=== PATIENT | female | born 1940 | race Caucasian/White ===

== ENCOUNTER 2022-12-24 18:25 | Inpatient (IN) | payer MEDICARE, BC ==
[2022-12-24] MEDS ORDERED: Sodium Chloride 0.9% 10 ML Syringe FLUSH PRN (18:34)
[2022-12-24 18:59] LABS: BASOPHILS ABSOLUTE AUTO 0.05 K/mm3 (0.01-0.08); BASOPHILS PERCENT AUTO 0.8 % (0.1-1.2); EOSINOPHILS ABSOLUTE AUTO 0.21 K/mm3 (0.04-0.36); EOSINOPHILS PERCENT AUTO 3.5 (0.7-5.8); HEMATOCRIT 40.3 % (34.1-44.9); HEMOGLOBIN 13.7 gm/dl (11.2-15.7); IMMATURE GRAN ABSOLUTE AUTO 0.01 K/mm3 (0.00-0.10); IMMATURE GRAN PERCENT AUTO 0.2 % (<=1.0); LYMPHOCYTES ABSOLUTE AUTO 2.42 K/mm3 (1.18-3.74); LYMPHOCYTES PERCENT AUTO 40.5 % (19.3-51.7); MEAN CORPUSCULAR VOLUME 97.1 fl (79.4-94.8); MEAN PLATELET VOLUME 10.3 fl (9.4-12.3); MONOCYTES ABSOLUTE AUTO 1.01 K/mm3 (0.24-0.36); MONOCYTES PERCENT AUTO 16.9 % (4.7-12.5); NEUTROPHILS ABSOLUTE AUTO 2.28 K/mm3 (1.56-6.13); NEUTROPHILS PERCENT AUTO 38.1 % (34.0-71.1); PLATELET COUNT,PLT 108 K/mm3 (182-369); RED BLOOD CELL COUNT 4.15 M/mm3 (3.98-5.22); WHITE BLOOD CELL COUNT,WBC 5.98 K/mm3 (3.98-10.04)
[2022-12-24 19:18] LABS: INR 1.18; PROTHROMBIN TIME 12.5 SECONDS (9.7-12.0)
[2022-12-24 19:19] LABS: PTT,PARTIAL THROMBOPLSTIN TIME 29.5 SECONDS (21.7-31.4)
[2022-12-24 19:30] LABS: A/G RATIO 0.7 (1-2); ALBUMIN 2.2 g/dl (3.4-5.0); ANION GAP 8.6 (5-15); BILIRUBIN TOTAL 0.9 mg/dL (0.2-1.0); BUN/CREATININE RATIO 11.7 (14-18); CALCIUM 8.3 mg/dL (8.5-10.1); CREATININE 1.2 mg/dL (0.55-1.02); EST CRCL DRUG DOSING (CG) 30.14 mL/min; MAGNESIUM 1.6 mg/dL (1.8-2.4); POTASSIUM,K 3.6 mEq/L (3.5-5.1); PROTEIN TOTAL,TP 5.5 g/dl (6.4-8.2)
[2022-12-24] MEDS ORDERED: methylPREDNISolone Sodium Succinate 125 MG/2 ML SDV IVPUSH ONE (20:17)
[2022-12-24] MEDS ORDERED: Acetaminophen 325 MG Tab PO ONE (20:23)
[2022-12-24] MEDS: Levofloxacin/Dextrose 5%-Water 750 MG in Premix Bag 1 BAG IV SCH (21:20)
[2022-12-24] MEDS: Albuterol/Ipratropium 3.0-0.5 MG/3 ML Neb Soln NEB SCH (21:32)
[2022-12-24] MEDS: Budesonide 0.5 MG/2 ML Neb Susp NEB SCH (21:32)
[2022-12-25] MEDS: Albuterol/Ipratropium 3.0-0.5 MG/3 ML Neb Soln NEB SCH ×6 (01:49→20:53)
[2022-12-25] MEDS: Budesonide 0.5 MG/2 ML Neb Susp NEB SCH ×2 (05:27→20:54)
[2022-12-25] MEDS: Lidocaine 4% 1 each Patch TOP SCH ×2 (07:51→10:20)
[2022-12-25] MEDS ORDERED: Pantoprazole 40 MG Tab.CR PO ONE (08:09)
[2022-12-25] MEDS: Acetaminophen 325 MG Tab PO PRN ×3 (08:13→23:12)
[2022-12-25] MEDS ORDERED: Lidocaine 4% 1 each Patch TOP SCH (09:00)
[2022-12-25 12:51] LABS: BASE EXCESS ARTERIAL -3.6 (-2-2.0); BICARBONATE,ARTERIAL 19.8 meq/L (22.0-26.0); O2 SATURATION ARTERIAL 93.1 % (96.0-97.0); PCO2 ARTERIAL 32.4 mmHg (35.0-45.0)
[2022-12-25 13:28] LABS: EOSINOPHILS PERCENT AUTO 0 (0.7-5.8); HEMATOCRIT 39.8 % (34.1-44.9); HEMOGLOBIN 13.4 gm/dl (11.2-15.7); LYMPHOCYTES ABSOLUTE AUTO 0.68 K/mm3 (1.18-3.74); LYMPHOCYTES PERCENT AUTO 16.1 % (19.3-51.7); MEAN CORPUSCULAR HEMOGLOBIN 32.8 pg (25.6-32.2); MEAN CORPUSCULAR HGB CONC 33.7 g/dl (32.2-35.5); MEAN CORPUSCULAR VOLUME 97.5 fl (79.4-94.8); MEAN PLATELET VOLUME 10.5 fl (9.4-12.3); MONOCYTES ABSOLUTE AUTO 0.37 K/mm3 (0.24-0.36); MONOCYTES PERCENT AUTO 8.7 % (4.7-12.5); NEUTROPHILS ABSOLUTE AUTO 3.18 K/mm3 (1.56-6.13); NEUTROPHILS PERCENT AUTO 75.2 % (34.0-71.1); PLATELET COUNT,PLT 95 K/mm3 (182-369); RED BLOOD CELL COUNT 4.08 M/mm3 (3.98-5.22); WHITE BLOOD CELL COUNT,WBC 4.23 K/mm3 (3.98-10.04)
[2022-12-25 14:02] LABS: A/G RATIO 0.6 (1-2); ANION GAP 16.1 (5-15); BILIRUBIN TOTAL 0.7 mg/dL (0.2-1.0); CALCIUM 8.7 mg/dL (8.5-10.1); CREATININE 1.4 mg/dL (0.55-1.02); EST CRCL DRUG DOSING (CG) 25.83 mL/min; POTASSIUM,K 4.1 mEq/L (3.5-5.1); PROTEIN TOTAL,TP 5.3 g/dl (6.4-8.2)
[2022-12-25 14:27] LABS: SLIDE REVIEW ABNORMAL SMEAR
[2022-12-25] MEDS ORDERED: Sodium Chloride 0.9% 1,000 ML IV ONE (14:55)
[2022-12-25] MEDS ORDERED: Non-Formulary Medication 1 Each (Lidocaine 5% 700 MG Patch) SCH (15:15)
[2022-12-25] MEDS: REVEFENACIN 175 MCG/3 ML SCH ×2 (15:36→15:37)
[2022-12-25] MEDS: Non-Formulary Medication 1 Each (Formoterol Fumarate [Formoterol Fumarate] 20 MCG/2 ML Via SCH ×2 (15:36→15:38)
[2022-12-25] MEDS: REVEFENACIN 175 MCG/3 ML NEB SCH (15:37)
[2022-12-25] MEDS: FORMOTEROL FUMARATE 20 MCG/2 ML NEB SCH ×2 (15:37→20:55)
[2022-12-25] MEDS ORDERED: Levofloxacin/Dextrose 5%-Water 750 MG in Premix Bag 1 BAG IV SCH (20:00)
[2022-12-25] MEDS: Levofloxacin/Dextrose 5%-Water 750 MG in Premix Bag 1 BAG IV SCH (20:50)
[2022-12-26] MEDS: Albuterol/Ipratropium 3.0-0.5 MG/3 ML Neb Soln NEB SCH ×6 (02:11→21:28)
[2022-12-26] MEDS: Budesonide 0.5 MG/2 ML Neb Susp NEB SCH ×2 (05:46→21:28)
[2022-12-26] MEDS ORDERED: Pantoprazole 40 MG Tab.CR PO SCH (06:00)
[2022-12-26 06:10] LABS: BASOPHILS ABSOLUTE AUTO 0.02 K/mm3 (0.01-0.08); BASOPHILS PERCENT AUTO 0.3 % (0.1-1.2); EOSINOPHILS ABSOLUTE AUTO 0.06 K/mm3 (0.04-0.36); EOSINOPHILS PERCENT AUTO 0.9 (0.7-5.8); HEMATOCRIT 35.1 % (34.1-44.9); IMMATURE GRAN ABSOLUTE AUTO 0.01 K/mm3 (0.00-0.10); IMMATURE GRAN PERCENT AUTO 0.1 % (<=1.0); LYMPHOCYTES ABSOLUTE AUTO 1.75 K/mm3 (1.18-3.74); LYMPHOCYTES PERCENT AUTO 25.8 % (19.3-51.7); MEAN CORPUSCULAR HEMOGLOBIN 32.7 pg (25.6-32.2); MEAN CORPUSCULAR HGB CONC 33.6 g/dl (32.2-35.5); MEAN CORPUSCULAR VOLUME 97.2 fl (79.4-94.8); MEAN PLATELET VOLUME 10.4 fl (9.4-12.3); MONOCYTES ABSOLUTE AUTO 1.05 K/mm3 (0.24-0.36); MONOCYTES PERCENT AUTO 15.5 % (4.7-12.5); NEUTROPHILS PERCENT AUTO 57.4 % (34.0-71.1); PLATELET COUNT,PLT 93 K/mm3 (182-369); RED BLOOD CELL COUNT 3.61 M/mm3 (3.98-5.22); WHITE BLOOD CELL COUNT,WBC 6.79 K/mm3 (3.98-10.04)
[2022-12-26 06:24] LABS: HEMOGLOBIN 11.8 gm/dl (11.2-15.7)
[2022-12-26 06:26] LABS: ANION GAP 10.6 (5-15); BUN/CREATININE RATIO 17.7 (14-18); CALCIUM 8.1 mg/dL (8.5-10.1); CREATININE 1.3 mg/dL (0.55-1.02); EST CRCL DRUG DOSING (CG) 27.82 mL/min; POTASSIUM,K 3.6 mEq/L (3.5-5.1)
[2022-12-26] MEDS: Pantoprazole 40 MG Tab.CR PO SCH ×2 (07:33→10:36)
[2022-12-26 07:40] LABS: SLIDE REVIEW ABNORMAL SMEAR
[2022-12-26] MEDS: Lidocaine 4% 1 each Patch TOP SCH (08:14)
[2022-12-26] MEDS ORDERED: Non-Formulary Medication 1 Each (Prednisolone Acetate/Pf [Prednisolone Acet 1% Eye Drop] 5 EYELF SCH (09:00)
[2022-12-26] MEDS: prednisoLONE Acetate 1% Ophth Susp 5 ML Bottle EYELF SCH (09:11)
[2022-12-26] MEDS: FORMOTEROL FUMARATE 20 MCG/2 ML NEB SCH ×2 (09:19→21:28)
[2022-12-26] MEDS: REVEFENACIN 175 MCG/3 ML NEB SCH (13:22)
[2022-12-26] MEDS ORDERED: Loratadine 10 MG Tab PO PRN (13:29)
[2022-12-26] MEDS ORDERED: Polyethylene Glycol 3350 Powder 17 GM Packet PO PRN (14:04)
[2022-12-26] MEDS ORDERED: Ondansetron 4 MG/2 ML SDV IV PRN (14:04)
[2022-12-26] MEDS ORDERED: Ondansetron 4 MG Tab.DIS PO PRN (14:04)
[2022-12-26] MEDS ORDERED: Albuterol 0.083% 2.5 MG/3 ML Neb Soln NEB PRN (14:04)
[2022-12-26] MEDS ORDERED: Enoxaparin 40 MG/0.4 ML Syringe SUBCUT SCH (14:15)
[2022-12-26] MEDS: predniSONE 20 MG Tab PO SCH (18:48)
[2022-12-26] MEDS ORDERED: methylPREDNISolone Sodium Succinate 125 MG/2 ML SDV IVPUSH SCH (20:00)
[2022-12-26] MEDS: Docusate Sodium 100 MG Cap PO PRN (21:49)
[2022-12-27] MEDS: Albuterol/Ipratropium 3.0-0.5 MG/3 ML Neb Soln NEB SCH ×6 (02:07→21:25)
[2022-12-27] MEDS: Budesonide 0.5 MG/2 ML Neb Susp NEB SCH ×2 (05:41→21:24)
[2022-12-27 06:30] LABS: EOSINOPHILS PERCENT AUTO 0 (0.7-5.8); HEMATOCRIT 37.5 % (34.1-44.9); HEMOGLOBIN 12.8 gm/dl (11.2-15.7); LYMPHOCYTES ABSOLUTE AUTO 0.55 K/mm3 (1.18-3.74); MEAN CORPUSCULAR HEMOGLOBIN 33.4 pg (25.6-32.2); MEAN CORPUSCULAR HGB CONC 34.1 g/dl (32.2-35.5); MEAN CORPUSCULAR VOLUME 97.9 fl (79.4-94.8); MEAN PLATELET VOLUME 10.8 fl (9.4-12.3); MONOCYTES ABSOLUTE AUTO 0.25 K/mm3 (0.24-0.36); NEUTROPHILS ABSOLUTE AUTO 4.18 K/mm3 (1.56-6.13); PLATELET COUNT,PLT 89 K/mm3 (182-369); RED BLOOD CELL COUNT 3.83 M/mm3 (3.98-5.22); WHITE BLOOD CELL COUNT,WBC 4.98 K/mm3 (3.98-10.04)
[2022-12-27 06:52] LABS: BUN/CREATININE RATIO 18.2 (14-18); CALCIUM 8.4 mg/dL (8.5-10.1); CREATININE 1.1 mg/dL (0.55-1.02); EST CRCL DRUG DOSING (CG) 32.87 mL/min
[2022-12-27 07:28] LABS: SLIDE REVIEW ABNORMAL SMEAR
[2022-12-27] MEDS: Pantoprazole 40 MG Tab.CR PO SCH (09:31)
[2022-12-27] MEDS: Lidocaine 4% 1 each Patch TOP SCH (09:32)
[2022-12-27] MEDS: prednisoLONE Acetate 1% Ophth Susp 5 ML Bottle EYELF SCH (09:33)
[2022-12-27] MEDS: FORMOTEROL FUMARATE 20 MCG/2 ML NEB SCH ×2 (09:40→21:25)
[2022-12-27] MEDS: REVEFENACIN 175 MCG/3 ML NEB SCH (14:00)
[2022-12-27] MEDS: predniSONE 20 MG Tab PO SCH (17:33)
[2022-12-27] MEDS: Levofloxacin/Dextrose 5%-Water 750 MG in Premix Bag 1 BAG IV SCH (20:52)
[2022-12-27] MEDS: Acetaminophen 325 MG Tab PO PRN (21:06)
[2022-12-27] MEDS: Docusate Sodium 100 MG Cap PO PRN (21:06)
[2022-12-27] MEDS: Temazepam 7.5 MG Cap PO PRN (21:07)
[2022-12-28] MEDS: Albuterol/Ipratropium 3.0-0.5 MG/3 ML Neb Soln NEB SCH ×6 (02:30→21:35)
[2022-12-28 05:23] LABS: EOSINOPHILS PERCENT AUTO 0 (0.7-5.8); HEMATOCRIT 35.2 % (34.1-44.9); HEMOGLOBIN 11.7 gm/dl (11.2-15.7); LYMPHOCYTES ABSOLUTE AUTO 0.45 K/mm3 (1.18-3.74); LYMPHOCYTES PERCENT AUTO 10.2 % (19.3-51.7); MEAN CORPUSCULAR HEMOGLOBIN 32.5 pg (25.6-32.2); MEAN CORPUSCULAR HGB CONC 33.2 g/dl (32.2-35.5); MEAN CORPUSCULAR VOLUME 97.8 fl (79.4-94.8); MEAN PLATELET VOLUME 10.6 fl (9.4-12.3); MONOCYTES ABSOLUTE AUTO 0.28 K/mm3 (0.24-0.36); MONOCYTES PERCENT AUTO 6.3 % (4.7-12.5); NEUTROPHILS PERCENT AUTO 83.5 % (34.0-71.1); PLATELET COUNT,PLT 82 K/mm3 (182-369); WHITE BLOOD CELL COUNT,WBC 4.43 K/mm3 (3.98-10.04)
[2022-12-28 05:49] LABS: ANION GAP 10.2 (5-15); BUN/CREATININE RATIO 23.6 (14-18); CALCIUM 8.3 mg/dL (8.5-10.1); CREATININE 1.1 mg/dL (0.55-1.02); EST CRCL DRUG DOSING (CG) 33.11 mL/min; POTASSIUM,K 4.2 mEq/L (3.5-5.1)
[2022-12-28] MEDS: Budesonide 0.5 MG/2 ML Neb Susp NEB SCH ×2 (06:01→21:35)
[2022-12-28 06:33] LABS: SLIDE REVIEW ABNORMAL SMEAR
[2022-12-28] MEDS: Acetaminophen 325 MG Tab PO PRN (09:43)
[2022-12-28] MEDS: Pantoprazole 40 MG Tab.CR PO SCH (09:43)
[2022-12-28] MEDS: prednisoLONE Acetate 1% Ophth Susp 5 ML Bottle EYELF SCH (09:44)
[2022-12-28] MEDS: Lidocaine 4% 1 each Patch TOP SCH (09:45)
[2022-12-28] MEDS: FORMOTEROL FUMARATE 20 MCG/2 ML NEB SCH ×2 (10:30→21:52)
[2022-12-28] MEDS: REVEFENACIN 175 MCG/3 ML NEB SCH (14:03)
[2022-12-28] MEDS: predniSONE 20 MG Tab PO SCH (17:49)
[2022-12-28] MEDS: Temazepam 7.5 MG Cap PO PRN (21:19)
[2022-12-29] MEDS: Albuterol/Ipratropium 3.0-0.5 MG/3 ML Neb Soln NEB SCH ×6 (02:06→21:24)
[2022-12-29 05:28] LABS: EOSINOPHILS PERCENT AUTO 0 (0.7-5.8); HEMATOCRIT 38.4 % (34.1-44.9); HEMOGLOBIN 12.9 gm/dl (11.2-15.7); IMMATURE GRAN ABSOLUTE AUTO 0.01 K/mm3 (0.00-0.10); IMMATURE GRAN PERCENT AUTO 0.2 % (<=1.0); LYMPHOCYTES ABSOLUTE AUTO 0.88 K/mm3 (1.18-3.74); LYMPHOCYTES PERCENT AUTO 14.3 % (19.3-51.7); MEAN CORPUSCULAR HEMOGLOBIN 32.9 pg (25.6-32.2); MEAN CORPUSCULAR HGB CONC 33.6 g/dl (32.2-35.5); MEAN PLATELET VOLUME 10.5 fl (9.4-12.3); MONOCYTES ABSOLUTE AUTO 0.58 K/mm3 (0.24-0.36); MONOCYTES PERCENT AUTO 9.4 % (4.7-12.5); NEUTROPHILS ABSOLUTE AUTO 4.67 K/mm3 (1.56-6.13); NEUTROPHILS PERCENT AUTO 76.1 % (34.0-71.1); PLATELET COUNT,PLT 95 K/mm3 (182-369); RED BLOOD CELL COUNT 3.92 M/mm3 (3.98-5.22); WHITE BLOOD CELL COUNT,WBC 6.14 K/mm3 (3.98-10.04)
[2022-12-29 05:50] LABS: ANION GAP 9.1 (5-15); BUN/CREATININE RATIO 22.5 (14-18); CALCIUM 8.3 mg/dL (8.5-10.1); CREATININE 1.2 mg/dL (0.55-1.02); EST CRCL DRUG DOSING (CG) 30.35 mL/min; POTASSIUM,K 4.1 mEq/L (3.5-5.1)
[2022-12-29] MEDS: Budesonide 0.5 MG/2 ML Neb Susp NEB SCH ×2 (05:51→21:24)
[2022-12-29 06:25] LABS: SLIDE REVIEW ABNORMAL SMEAR
[2022-12-29] MEDS: Pantoprazole 40 MG Tab.CR PO SCH ×2 (06:25→09:00)
[2022-12-29] MEDS: prednisoLONE Acetate 1% Ophth Susp 5 ML Bottle EYELF SCH (08:57)
[2022-12-29] MEDS: Lidocaine 4% 1 each Patch TOP SCH (08:57)
[2022-12-29] MEDS: FORMOTEROL FUMARATE 20 MCG/2 ML NEB SCH ×2 (09:19→21:25)
[2022-12-29] MEDS: REVEFENACIN 175 MCG/3 ML NEB SCH (13:29)
[2022-12-29] MEDS: Acetaminophen 325 MG Tab PO PRN ×2 (15:41→20:58)
[2022-12-29] MEDS: Docusate Sodium 100 MG Cap PO PRN ×2 (15:48→21:18)
[2022-12-29] MEDS ORDERED: predniSONE 10 MG Tab PO SCH (18:00)
[2022-12-29] MEDS: Levofloxacin/Dextrose 5%-Water 750 MG in Premix Bag 1 BAG IV SCH (21:03)
[2022-12-29] MEDS: Temazepam 7.5 MG Cap PO PRN (22:48)
[2022-12-30] MEDS: Albuterol/Ipratropium 3.0-0.5 MG/3 ML Neb Soln NEB SCH ×3 (01:42→09:31)
[2022-12-30] MEDS: Pantoprazole 40 MG Tab.CR PO SCH ×2 (05:14→08:47)
[2022-12-30] MEDS: Acetaminophen 325 MG Tab PO PRN (05:35)
[2022-12-30] MEDS: Budesonide 0.5 MG/2 ML Neb Susp NEB SCH (06:19)
[2022-12-30] MEDS: prednisoLONE Acetate 1% Ophth Susp 5 ML Bottle EYELF SCH (08:47)
[2022-12-30] MEDS: Lidocaine 4% 1 each Patch TOP SCH (08:47)
[2022-12-30] MEDS: FORMOTEROL FUMARATE 20 MCG/2 ML NEB SCH (09:31)
[2023-01-01] MEDS ORDERED: predniSONE 20 MG Tab PO SCH (18:00)
[2023-01-04] MEDS ORDERED: predniSONE 10 MG Tab PO SCH (18:00)
== END 2022-12-30 11:20 | disposition home or self-care (01) | DRG 871 ==
LOC: JD.ED 18:25 → JD.MS 12-26 09:30
PROVIDERS: ADMIT Hospitalist; ATTEND Hospitalist
DX: A41.89 Other specified sepsis (principal); J18.9 Pneumonia, unspecified organism; J44.0 Chronic obstructive pulmonary disease with (acute) lower respiratory infection; Z99.81 Dependence on supplemental oxygen; Z79.51 Long term (current) use of inhaled steroids; J44.1 Chronic obstructive pulmonary disease with (acute) exacerbation; J96.11 Chronic respiratory failure with hypoxia; E88.01 Alpha-1-antitrypsin deficiency; Z88.1 Allergy status to other antibiotic agents; Z88.5 Allergy status to narcotic agent; Z79.52 Long term (current) use of systemic steroids; Z79.899 Other long term (current) drug therapy
CPT/HCPCS: 36415 ×3; 36600; 71045; 80048; 80053 ×2; 82803; 83735; 83880; 84484; 85025 ×3; 85610; 85730; 87040 ×2; 93005; 94640 ×9; 96361 ×2; 96365; 96375; 99285; A9270 ×8; J1956 ×2; J2930; J3490; J7030; 87641; 93010; 94762; 99222; 99232; 99284; J7512; J7620-GY

== ENCOUNTER 2023-01-18 14:29 | Inpatient (IN) | payer MEDICARE, BC ==
[2023-01-18] MEDS ORDERED: Sodium Chloride 0.9% 10 ML Syringe FLUSH PRN (15:02)
[2023-01-18] MEDS ORDERED: methylPREDNISolone Sodium Succinate 125 MG/2 ML SDV IVPUSH ONE (15:03)
[2023-01-18] MEDS: Albuterol 0.083% 2.5 MG/3 ML Neb Soln NEB SCH ×2 (15:14→15:27)
[2023-01-18 15:44] LABS: BASOPHILS ABSOLUTE AUTO 0.03 K/mm3 (0.01-0.08); BASOPHILS PERCENT AUTO 0.6 % (0.1-1.2); EOSINOPHILS ABSOLUTE AUTO 0.23 K/mm3 (0.04-0.36); EOSINOPHILS PERCENT AUTO 4.9 (0.7-5.8); HEMATOCRIT 39.9 % (34.1-44.9); HEMOGLOBIN 13.6 gm/dl (11.2-15.7); IMMATURE GRAN ABSOLUTE AUTO 0.01 K/mm3 (0.00-0.10); IMMATURE GRAN PERCENT AUTO 0.2 % (<=1.0); LYMPHOCYTES PERCENT AUTO 21.2 % (19.3-51.7); MEAN CORPUSCULAR HEMOGLOBIN 33.1 pg (25.6-32.2); MEAN CORPUSCULAR HGB CONC 34.1 g/dl (32.2-35.5); MEAN CORPUSCULAR VOLUME 97.1 fl (79.4-94.8); MEAN PLATELET VOLUME 10.3 fl (9.4-12.3); MONOCYTES ABSOLUTE AUTO 1.02 K/mm3 (0.24-0.36); MONOCYTES PERCENT AUTO 21.7 % (4.7-12.5); NEUTROPHILS ABSOLUTE AUTO 2.42 K/mm3 (1.56-6.13); NEUTROPHILS PERCENT AUTO 51.4 % (34.0-71.1); PLATELET COUNT,PLT 95 K/mm3 (182-369); RED BLOOD CELL COUNT 4.11 M/mm3 (3.98-5.22); WHITE BLOOD CELL COUNT,WBC 4.71 K/mm3 (3.98-10.04)
[2023-01-18 15:57] LABS: INR 1.12; PROTHROMBIN TIME 11.9 SECONDS (9.7-12.0)
[2023-01-18 15:58] LABS: PTT,PARTIAL THROMBOPLSTIN TIME 28.9 SECONDS (21.7-31.4)
[2023-01-18 16:09] LABS: A/G RATIO 0.7 (1-2); ALBUMIN 2.1 g/dl (3.4-5.0); ANION GAP 9.9 (5-15); BILIRUBIN TOTAL 1.5 mg/dL (0.2-1.0); BUN/CREATININE RATIO 16.7 (14-18); CALCIUM 8.3 mg/dL (8.5-10.1); CREATININE 1.2 mg/dL (0.55-1.02); EST CRCL DRUG DOSING (CG) 30.14 mL/min; MAGNESIUM 1.9 mg/dL (1.8-2.4); POTASSIUM,K 3.9 mEq/L (3.5-5.1); PROTEIN TOTAL,TP 5.3 g/dl (6.4-8.2)
[2023-01-18 16:28] LABS: SLIDE REVIEW ABNORMAL SMEAR
[2023-01-18 17:57] LABS: BASE EXCESS ARTERIAL 0.4 (-2-2.0); BICARBONATE,ARTERIAL 24.1 meq/L (22.0-26.0); O2 SATURATION ARTERIAL 87.2 % (96.0-97.0)
[2023-01-18] MEDS ORDERED: Albuterol/Ipratropium 3.0-0.5 MG/3 ML Neb Soln PRN (19:26)
[2023-01-18] MEDS ORDERED: Acetaminophen 325 MG Tab PO PRN (19:26)
[2023-01-18] MEDS ORDERED: Loratadine 10 MG Tab PO PRN (19:26)
[2023-01-18] MEDS ORDERED: HYDROmorphone 0.5 MG/0.5 ML Syringe IVPUSH ONE (20:22)
[2023-01-18] MEDS ORDERED: Ondansetron 4 MG/2 ML SDV IVPUSH ONE (20:22)
[2023-01-18] MEDS: Budesonide 0.5 MG/2 ML Neb Susp INH SCH (20:31)
[2023-01-18] MEDS ORDERED: Non-Formulary Medication 1 Each (Formoterol Fumarate [Formoterol Fumarate] 20 MCG/2 ML Via SCH (21:00)
[2023-01-18] MEDS ORDERED: Ondansetron 4 MG/2 ML SDV IV PRN (22:24)
[2023-01-18] MEDS ORDERED: Polyethylene Glycol 3350 Powder 17 GM Packet PO PRN (22:24)
[2023-01-18] MEDS ORDERED: Docusate Sodium 100 MG Cap PO PRN (22:24)
[2023-01-18] MEDS ORDERED: Ondansetron 4 MG Tab.DIS PO PRN (22:24)
[2023-01-19] MEDS: Albuterol 0.083% 2.5 MG/3 ML Neb Soln NEB PRN ×2 (00:34→03:50)
[2023-01-19] MEDS: Melatonin 3 MG Tab PO SCH ×2 (01:17→21:41)
[2023-01-19 03:50] LABS: APPEARANCE,URINE CLOUDY (Clear); BILIRUBIN,URINE NEGATIVE (Negative); COLOR,URINE YELLOW (Yellow); GLUCOSE,URINE NEGATIVE (Negative); KETONES,URINE NEGATIVE (Negative); LEUKOCYTE ESTERASE,URINE NEGATIVE (Negative); NITRITE,URINE NEGATIVE (Negative); OCCULT BLOOD,URINE 2+ (Negative); PROTEIN,URINE 1+ (Negative); UROBILINOGEN,URINE 0.2 (0.2-1.0)
[2023-01-19 04:11] LABS: BACTERIA,URINE MODERATE /hpf (FEW); CALCIUM OXALATE CRYSTALS,URINE OCCASIONAL; HYALINE CASTS,URINE 30-40 /lpf (0-5); MUCUS,URINE MODERATE /hpf (FEW); RENAL EPITHELIAL CELLS,URINE 0-5 /hpf (0-5); SQUAMOUS EPITHELIAL CELLS,UR 0-5 /hpf (0-5); WBC,URINE 0-5 /hpf (0-5)
[2023-01-19 06:06] LABS: EOSINOPHILS PERCENT AUTO 0 (0.7-5.8); HEMATOCRIT 37.6 % (34.1-44.9); HEMOGLOBIN 12.5 gm/dl (11.2-15.7); LYMPHOCYTES PERCENT AUTO 16.8 % (19.3-51.7); MEAN CORPUSCULAR HEMOGLOBIN 32.7 pg (25.6-32.2); MEAN CORPUSCULAR HGB CONC 33.2 g/dl (32.2-35.5); MEAN CORPUSCULAR VOLUME 98.4 fl (79.4-94.8); MEAN PLATELET VOLUME 10.2 fl (9.4-12.3); MONOCYTES ABSOLUTE AUTO 0.21 K/mm3 (0.24-0.36); MONOCYTES PERCENT AUTO 8.8 % (4.7-12.5); NEUTROPHILS ABSOLUTE AUTO 1.77 K/mm3 (1.56-6.13); NEUTROPHILS PERCENT AUTO 74.4 % (34.0-71.1); PLATELET COUNT,PLT 85 K/mm3 (182-369); RED BLOOD CELL COUNT 3.82 M/mm3 (3.98-5.22)
[2023-01-19] MEDS: Albuterol/Ipratropium 3.0-0.5 MG/3 ML Neb Soln NEB SCH ×5 (06:12→21:57)
[2023-01-19 06:29] LABS: WHITE BLOOD CELL COUNT,WBC 2.38 K/mm3 (3.98-10.04)
[2023-01-19 06:31] LABS: ANION GAP 11.4 (5-15); CALCIUM 8.3 mg/dL (8.5-10.1); CREATININE 1.5 mg/dL (0.55-1.02); EST CRCL DRUG DOSING (CG) 24.11 mL/min; POTASSIUM,K 4.4 mEq/L (3.5-5.1)
[2023-01-19] MEDS: Pantoprazole 40 MG Tab.CR PO SCH (06:46)
[2023-01-19 07:46] LABS: SLIDE REVIEW ABNORMAL SMEAR
[2023-01-19] MEDS ORDERED: Enoxaparin 40 MG/0.4 ML Syringe SUBCUT SCH (09:00)
[2023-01-19] MEDS ORDERED: Pantoprazole 40 MG Tab.CR PO SCH (09:00)
[2023-01-19] MEDS ORDERED: PREDNISOLONE ACETATE 1% EYELF SCH (09:00)
[2023-01-19 09:24] LABS: EOSINOPHILS PERCENT AUTO 0 (0.7-5.8); HEMATOCRIT 37.5 % (34.1-44.9); HEMOGLOBIN 12.5 gm/dl (11.2-15.7); IMMATURE GRAN ABSOLUTE AUTO 0.01 K/mm3 (0.00-0.10); IMMATURE GRAN PERCENT AUTO 0.3 % (<=1.0); LYMPHOCYTES ABSOLUTE AUTO 0.54 K/mm3 (1.18-3.74); LYMPHOCYTES PERCENT AUTO 15.3 % (19.3-51.7); MEAN CORPUSCULAR HEMOGLOBIN 32.9 pg (25.6-32.2); MEAN CORPUSCULAR HGB CONC 33.3 g/dl (32.2-35.5); MEAN CORPUSCULAR VOLUME 98.7 fl (79.4-94.8); MEAN PLATELET VOLUME 10.2 fl (9.4-12.3); MONOCYTES ABSOLUTE AUTO 0.34 K/mm3 (0.24-0.36); MONOCYTES PERCENT AUTO 9.7 % (4.7-12.5); NEUTROPHILS ABSOLUTE AUTO 2.63 K/mm3 (1.56-6.13); NEUTROPHILS PERCENT AUTO 74.7 % (34.0-71.1); PLATELET COUNT,PLT 91 K/mm3 (182-369); WHITE BLOOD CELL COUNT,WBC 3.52 K/mm3 (3.98-10.04)
[2023-01-19] MEDS: Budesonide 0.5 MG/2 ML Neb Susp INH SCH ×2 (09:25→21:57)
[2023-01-19] MEDS: Cholecalciferol (Vitamin D3) 25 MCG Tab PO SCH (09:44)
[2023-01-19] MEDS: Lidocaine 4% 1 each Patch TOP SCH (09:44)
[2023-01-19] MEDS: Multivitamin Tab PO SCH (09:44)
[2023-01-19 10:06] LABS: SLIDE REVIEW ABNORMAL SMEAR
[2023-01-19] MEDS ORDERED: ALPRAZolam 0.25 MG Tab PO PRN (11:21)
[2023-01-19] MEDS: prednisoLONE Acetate 1% Ophth Susp 5 ML Bottle EYELF SCH (12:53)
[2023-01-19] MEDS ORDERED: Acetaminophen 325 MG Tab PO PRN (15:45)
[2023-01-19] MEDS ORDERED: Non-Formulary Medication 1 Each (Melatonin [Melatonin] 10 MG Tablet) PO SCH (21:00)
[2023-01-20] MEDS: Albuterol/Ipratropium 3.0-0.5 MG/3 ML Neb Soln NEB SCH ×4 (02:21→13:08)
[2023-01-20] MEDS: Pantoprazole 40 MG Tab.CR PO SCH (06:05)
[2023-01-20 06:13] LABS: ANION GAP 10.1 (5-15); BUN/CREATININE RATIO 24.3 (14-18); CALCIUM 8.1 mg/dL (8.5-10.1); CREATININE 1.4 mg/dL (0.55-1.02); EST CRCL DRUG DOSING (CG) 25.83 mL/min; POTASSIUM,K 4.1 mEq/L (3.5-5.1)
[2023-01-20 06:22] LABS: BASOPHILS ABSOLUTE AUTO 0.01 K/mm3 (0.01-0.08); BASOPHILS PERCENT AUTO 0.1 % (0.1-1.2); EOSINOPHILS ABSOLUTE AUTO 0.12 K/mm3 (0.04-0.36); EOSINOPHILS PERCENT AUTO 1.8 (0.7-5.8); HEMATOCRIT 33.2 % (34.1-44.9); IMMATURE GRAN ABSOLUTE AUTO 0.02 K/mm3 (0.00-0.10); IMMATURE GRAN PERCENT AUTO 0.3 % (<=1.0); LYMPHOCYTES PERCENT AUTO 19.1 % (19.3-51.7); MEAN CORPUSCULAR HEMOGLOBIN 32.6 pg (25.6-32.2); MEAN CORPUSCULAR HGB CONC 33.1 g/dl (32.2-35.5); MEAN CORPUSCULAR VOLUME 98.5 fl (79.4-94.8); MEAN PLATELET VOLUME 10.6 fl (9.4-12.3); MONOCYTES ABSOLUTE AUTO 0.98 K/mm3 (0.24-0.36); MONOCYTES PERCENT AUTO 14.4 % (4.7-12.5); NEUTROPHILS ABSOLUTE AUTO 4.36 K/mm3 (1.56-6.13); NEUTROPHILS PERCENT AUTO 64.3 % (34.0-71.1); PLATELET COUNT,PLT 87 K/mm3 (182-369); RED BLOOD CELL COUNT 3.37 M/mm3 (3.98-5.22); WHITE BLOOD CELL COUNT,WBC 6.79 K/mm3 (3.98-10.04)
[2023-01-20 07:55] LABS: SLIDE REVIEW ABNORMAL SMEAR
[2023-01-20] MEDS: Cholecalciferol (Vitamin D3) 25 MCG Tab PO SCH (08:39)
[2023-01-20] MEDS: Multivitamin Tab PO SCH (08:39)
[2023-01-20] MEDS: Lidocaine 4% 1 each Patch TOP SCH (08:40)
[2023-01-20] MEDS: prednisoLONE Acetate 1% Ophth Susp 5 ML Bottle EYELF SCH (08:44)
[2023-01-20] MEDS: Budesonide 0.5 MG/2 ML Neb Susp INH SCH (09:04)
== END 2023-01-20 13:33 | disposition home or self-care (01) | DRG 189 ==
LOC: JD.ED 14:29 → JD.MS 19:34 → OBSVTOIN 01-19 09:16
PROVIDERS: ADMIT Hospitalist; ATTEND Hospitalist
DX: J96.21 Acute and chronic respiratory failure with hypoxia (principal); D61.818 Other pancytopenia; J43.9 Emphysema, unspecified; K59.09 Other constipation; E88.01 Alpha-1-antitrypsin deficiency; J44.1 Chronic obstructive pulmonary disease with (acute) exacerbation; I25.10 Atherosclerotic heart disease of native coronary artery without angina pectoris; I73.9 Peripheral vascular disease, unspecified; I27.20 Pulmonary hypertension, unspecified; K74.60 Unspecified cirrhosis of liver; M06.9 Rheumatoid arthritis, unspecified; Z96.649 Presence of unspecified artificial hip joint; Z98.890 Other specified postprocedural states; I50.9 Heart failure, unspecified; J90 Pleural effusion, not elsewhere classified; Z79.51 Long term (current) use of inhaled steroids; R91.8 Other nonspecific abnormal finding of lung field; R94.31 Abnormal electrocardiogram [ECG] [EKG]; Z88.6 Allergy status to analgesic agent; I25.2 Old myocardial infarction; Z88.8 Allergy status to other drugs, medicaments and biological substances; Z91.048 Other nonmedicinal substance allergy status; Z88.0 Allergy status to penicillin; Z88.4 Allergy status to anesthetic agent; Z88.5 Allergy status to narcotic agent; Z88.1 Allergy status to other antibiotic agents; Z79.899 Other long term (current) drug therapy
CPT/HCPCS: 36415 ×2; 36600; 71045; 80048; 80053; 81001; 82803; 83735; 83880; 84484; 85025 ×3; 85610; 85730; 87641; 93005; 94640 ×6; 96374; 96375; 99285; A9270 ×3; G0378 ×3; J1170; J2405; J2930; 93010; 94762; 99284; J3490; J7620-GY

== ENCOUNTER 2023-01-25 22:06 | Emergency (ER) | payer MEDICARE, BC | END 2023-01-25 22:45 | disposition home or self-care (01) | LOC: JD.ED 22:06 | DX: B02.9 Zoster without complications (principal); Z88.1 Allergy status to other antibiotic agents; I25.10 Atherosclerotic heart disease of native coronary artery without angina pectoris; I50.9 Heart failure, unspecified; I25.2 Old myocardial infarction; J44.9 Chronic obstructive pulmonary disease, unspecified; Z79.51 Long term (current) use of inhaled steroids; Z88.8 Allergy status to other drugs, medicaments and biological substances; Z91.09 Other allergy status, other than to drugs and biological substances; Z88.0 Allergy status to penicillin; Z88.5 Allergy status to narcotic agent; Z91.048 Other nonmedicinal substance allergy status; Z79.899 Other long term (current) drug therapy | CPT/HCPCS: 99282 ==

== ENCOUNTER 2023-02-08 10:34 | Emergency (ER) | payer MEDICARE, BC ==
[2023-02-08] MEDS ORDERED: Sodium Chloride 0.9% 10 ML Syringe FLUSH PRN (11:12)
[2023-02-08] MEDS ORDERED: Albuterol/Ipratropium 3.0-0.5 MG/3 ML Neb Soln NEB ONE ×2 (11:16→17:33)
[2023-02-08 12:02] LABS: HEMATOCRIT 40.8 % (34.1-44.9); HEMOGLOBIN 13.7 gm/dl (11.2-15.7); MEAN CORPUSCULAR HEMOGLOBIN 33.1 pg (25.6-32.2); MEAN CORPUSCULAR HGB CONC 33.6 g/dl (32.2-35.5); MEAN CORPUSCULAR VOLUME 98.6 fl (79.4-94.8); MEAN PLATELET VOLUME 10.2 fl (9.4-12.3); PLATELET COUNT,PLT 94 K/mm3 (182-369); RED BLOOD CELL COUNT 4.14 M/mm3 (3.98-5.22); WHITE BLOOD CELL COUNT,WBC 7.67 K/mm3 (3.98-10.04)
[2023-02-08 12:21] LABS: INR 1.21; PROTHROMBIN TIME 12.8 SECONDS (9.7-12.0)
[2023-02-08 12:24] LABS: A/G RATIO 0.7 (1-2); ALBUMIN 2.1 g/dl (3.4-5.0); ANION GAP 9.1 (5-15); BILIRUBIN TOTAL 2.1 mg/dL (0.2-1.0); C-REACTIVE PROTEIN 3.6 mg/dL (<1.0); CALCIUM 8.1 mg/dL (8.5-10.1); EST CRCL DRUG DOSING (CG) 36.16 mL/min; POTASSIUM,K 3.1 mEq/L (3.5-5.1); PROTEIN TOTAL,TP 5.3 g/dl (6.4-8.2)
[2023-02-08 12:33] LABS: LACTIC ACID 1.3 mmol/L (0.4-2.0)
[2023-02-08 13:17] LABS: BAND PERCENT MAN 0 % (0-10); BASOPHILS PERCENT MAN 1 (0.1-1.2); EOSINOPHILS PERCENT MAN 1 % (0.7-5.8); LYMPHOCYTES % ATYPICAL MANUAL 0 %; LYMPHOCYTES PERCENT MAN 12 % (20-40); MONOCYTES PERCENT MAN 10 % (2-10)
[2023-02-08 13:18] LABS: ANISOCYTOSIS 1+ SLIGHT; OVALOCYTES 1+ SLIGHT; PLATELET COUNT ESTIMATE DECREASED; TARGET CELLS 1+ SLIGHT; TOXIC GRANULATION 1+ SLIGHT
[2023-02-08 14:07] LABS: CORONAVIRUS COVID-19 NAA NEGATIVE (NEGATIVE); INFLUENZA A NAA NEGATIVE (NEGATIVE); RESPIRATORY SYNCYTIAL VIR NAA NEGATIVE (NEGATIVE)
[2023-02-08 14:38] LABS: APPEARANCE,URINE SLT CLOUDY (Clear); BILIRUBIN,URINE NEGATIVE (Negative); COLOR,URINE YELLOW (Yellow); GLUCOSE,URINE NEGATIVE (Negative); KETONES,URINE NEGATIVE (Negative); LEUKOCYTE ESTERASE,URINE NEGATIVE (Negative); NITRITE,URINE NEGATIVE (Negative); OCCULT BLOOD,URINE 2+ (Negative); PH,URINE 8.5 (5.0-8.0); PROTEIN,URINE 2+ (Negative)
[2023-02-08 14:45] LABS: RBC,URINE 0-5 /hpf (0-5); SQUAMOUS EPITHELIAL CELLS,UR 0-5 /hpf (0-5); WBC,URINE NOT SEEN /hpf (0-5)
[2023-02-08 14:46] LABS: AMORPHOUS SEDIMENT,URINE MODERATE /hpf (NOT SEEN); BACTERIA,URINE FEW /hpf (FEW); MUCUS,URINE RARE /hpf (FEW)
[2023-02-08] MEDS ORDERED: methylPREDNISolone Sodium Succinate 125 MG/2 ML SDV IVPUSH ONE (16:37)
[2023-02-08] MEDS ORDERED: cefTRIAXone 1 GM in Sodium Chloride 0.9% 100 ML IV ONE (16:37)
[2023-02-08] MEDS ORDERED: Labetalol 100 MG/20 ML MDV IVPUSH ONE (16:41)
== END 2023-02-08 18:57 ==
LOC: JD.ED 10:34
DX: J44.1 Chronic obstructive pulmonary disease with (acute) exacerbation (principal); K81.9 Cholecystitis, unspecified; I25.10 Atherosclerotic heart disease of native coronary artery without angina pectoris; I50.9 Heart failure, unspecified; I25.2 Old myocardial infarction; Z88.1 Allergy status to other antibiotic agents; Z88.8 Allergy status to other drugs, medicaments and biological substances; Z91.09 Other allergy status, other than to drugs and biological substances; Z88.0 Allergy status to penicillin; Z88.6 Allergy status to analgesic agent; Z88.5 Allergy status to narcotic agent; Z79.84 Long term (current) use of oral hypoglycemic drugs; Z79.899 Other long term (current) drug therapy; Z20.822 Contact with and (suspected) exposure to COVID-19
CPT/HCPCS: 0241U; 36415; 71045; 76705; 80053; 81001; 83605; 85007; 85027; 85610; 86140; 87040; 94640; 96365; 96375; 99285; J0696; J2930; J3490; 99284; J7620-GY